=== PATIENT | female | born 1990 | race Caucasian/White ===

== ENCOUNTER → 2023-09-16 07:56 | Outpatient (REF) | payer OTHER, SELFPAY | LOC: RAD 07:56 | PROVIDERS: ATTENDING PHYSICIAN Nurse Practitioner Family; FAMILY PHYSICIAN Family Medicine | DX: N83.209 Unspecified ovarian cyst, unspecified side (principal); N83.299 Other ovarian cyst, unspecified side | CPT/HCPCS: 76856 ==

== ENCOUNTER → 2024-11-10 08:29 | Outpatient (REF) | payer OTHER, SELFPAY | LOC: HWRAD 08:29 | PROVIDERS: ATTENDING PHYSICIAN Family Medicine | DX: J32.9 Chronic sinusitis, unspecified (principal) | CPT/HCPCS: 70486 ==